=== PATIENT | male | born 1955 | race Caucasian/White ===

== ENCOUNTER → 2023-09-29 11:14 | Outpatient (REF) | payer MEDICARE, OTHER, SELFPAY ==
[2023-09-29 13:08] LABS: Glycohemoglobin (HgbA1c) 7.9 % (4.0-5.6)
== END ==
LOC: HWLAB 11:14
PROVIDERS: ATTENDING PHYSICIAN Family Medicine
DX: E11.9 Type 2 diabetes mellitus without complications (principal)
CPT/HCPCS: 36415; 83036

== ENCOUNTER → 2023-10-28 13:16 | Outpatient (REF) | payer MEDICARE, OTHER, SELFPAY ==
[2023-10-28 16:21] LABS: ALT (SGPT) 23 U/L (0-50); AST (SGOT) 31 U/L (17-59); Albumin 4.2 g/dl (3.5-5.0); Alkaline Phosphatase 75 U/L (38-126); Blood Urea Nitrogen 14 mg/dl (9-20); Calcium 9.2 mg/dl (8.4-10.2); Carbon Dioxide 26 mmol/L (22-30); Chloride 96 mmol/L (98-107); Glucose 184 mg/dl (70-99); HDL Cholesterol 98 mg/dl; LDL Cholesterol, Calculated 170 mg/dl; Potassium 3.5 mmol/L (3.5-5.1); Sodium 134 mmol/L (135-145); Total Bilirubin 0.6 mg/dl (0.2-1.3); Total Cholesterol 288 mg/dl (50-199); Total Protein 7.2 g/dl (6.3-8.2); Triglyceride 104 mg/dl (10-149); Very Low Density Lipoprotein 20 mg/dl (0-30); eGFR > 60.00
== END ==
LOC: HWLAB 13:16
PROVIDERS: ATTENDING PHYSICIAN Internal Medicine Interventional Cardiology; FAMILY PHYSICIAN Family Medicine
DX: R06.09 Other forms of dyspnea (principal); E78.5 Hyperlipidemia, unspecified
CPT/HCPCS: 36415; 80053; 80061

== ENCOUNTER → 2023-10-31 07:04 | Outpatient (REF) | payer MEDICARE, OTHER, SELFPAY | LOC: RCS 07:04 | PROVIDERS: ATTENDING PHYSICIAN Internal Medicine Interventional Cardiology; FAMILY PHYSICIAN Family Medicine | DX: R06.09 Other forms of dyspnea (principal) | CPT/HCPCS: 93306 ==

== ENCOUNTER → 2023-12-24 07:20 | Outpatient (REF) | payer MEDICARE, OTHER, SELFPAY | LOC: DHCBC/DCA 07:20 | PROVIDERS: ATTENDING PHYSICIAN Internal Medicine Interventional Cardiology; FAMILY PHYSICIAN Family Medicine | DX: R06.09 Other forms of dyspnea (principal) | CPT/HCPCS: 78452; 93017; A9500; J2785 ==

== ENCOUNTER → 2024-10-28 13:57 | Outpatient (REF) | payer MEDICARE, OTHER, SELFPAY | LOC: HWRAD 13:57 | PROVIDERS: ATTENDING PHYSICIAN Internal Medicine Rheumatology; FAMILY PHYSICIAN Family Medicine | DX: M81.0 Age-related osteoporosis without current pathological fracture (principal); Z13.820 Encounter for screening for osteoporosis | CPT/HCPCS: 77080 ==

== ENCOUNTER → 2025-04-18 14:34 | Outpatient (REF) | payer MEDICARE, OTHER, SELFPAY | LOC: HWRAD 14:34 | PROVIDERS: ATTENDING PHYSICIAN Family Medicine | DX: Z87.891 Personal history of nicotine dependence (principal) | CPT/HCPCS: 71271 ==